=== PATIENT | male | born 1975 | race Caucasian/White ===

== ENCOUNTER → 2019-04-10 | Outpatient (REF) ==
[~2019-04-10] MED LIST: AMBI5TAB PO; PAXI20TA29 PO; Propanolol PO; ZANT150T15 PO
--- NOTE | 2019-04-10 14:40 | REP ---
Clinical: Pain. Technique: Neutral and frog lateral views of the right hip. Findings: Osseous structures, joint spaces, and surrounding soft tissues are normal for age. No overt arthritic changes are appreciated. No acute fracture dislocation. Surrounding soft tissues normal. Impression: Normal age-appropriate right hip radiographs. Electronically Signed by Skyler Amin MD 04/10/2019 02:31 P
--- NOTE | 2019-04-10 14:42 | REP ---
Clinical: Pain and disability. Technique: AP, lateral, coned-down views of the lumbosacral spine. Findings: Alignment and lordosis maintained. Chronic L5 spondylolysis without spondylolisthesis is suggested. Very minimal disc space narrowing at L4-5 and L5-S1 noted. Remainder examination is normal for age. Impression: Chronic L5 spondylolysis and minimal disc space narrowing at L4-5 and L5-S1. Electronically Signed by Skyler Amin MD 04/10/2019 02:34 P
== END ==
LOC: M SMT 14:02
PROVIDERS: ATTEND Internal Medicine
DX: Z02.71 Encounter for disability determination (principal)

== ENCOUNTER → 2020-09-23 | Outpatient (CLI) | payer MEDICARE, OTHER ==
[~2020-09-23] MED LIST changes: +D31000TA2 PO; +LISI10TA4 PO; +MECL1TAB31 PO; +OMEP40CA97 PO; +PROP40TA62 PO
== END ==
LOC: M LABSMTC 12:12
PROVIDERS: ATTEND Anesthesiology
DX: Z01.812 Encounter for preprocedural laboratory examination (principal)

== ENCOUNTER → 2021-03-11 | Outpatient (CLI) | payer OTHER ==
[~2021-03-11] MED LIST changes: +LISI10TA22 PO; -LISI10TA4 PO
--- NOTE | 2021-03-11 11:51 | REPVR ---
PROCEDURE INFORMATION: Exam: MR Lumbar Spine Without Contrast Exam date and time: 03/11/2021 10:56 AM Age: 45 years old Clinical indication: Low back pain; Patient HX: Lbp TECHNIQUE: Imaging protocol: Multiplanar magnetic resonance images of the lumbar spine without intravenous contrast. COMPARISON: SPINE LUMBOSACRAL PARTIAL 04/10/2019 2:19 PM FINDINGS: Vertebrae: No acute compression fracture is seen. There are chronic bilateral pars defects at L5. Bone marrow signal is within normal limits. Spinal cord: The conus medullaris terminates at the T12-L1 level. There is no evidence of arachnoiditis or cauda equina compression. L1-L2: No significant disc disease. No significant spinal stenosis or neural foraminal narrowing. L2-L3: There is mild facet arthropathy. No spinal canal or neural foraminal stenosis is present. L3-L4: There is mild facet arthropathy. No spinal canal or neural foraminal stenosis is present. L4-L5: There is disc dehydration, mild diffuse circumferential disc bulging, and a small central annular fissure. Mild facet arthropathy is also present. There is no significant spinal canal stenosis. There is minimal narrowing of the subarticular recesses and minimal bilateral neural foraminal narrowing. L5-S1: There is disc dehydration, moderate diffuse circumferential disc bulging, and a superimposed central and paracentral annular fissure. Mild facet arthropathy is also noted. The spinal canal is widely patent. There is minimal bilateral neural foraminal narrowing. Soft tissues: Unremarkable. IMPRESSION: 1. Chronic L5 pars defects 2. 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
== END ==
LOC: M PLARAD 09:57
PROVIDERS: ATTEND Nurse Practitioner Primary Care
DX: M51.36 Other intervertebral disc degeneration, lumbar region (principal); M54.5 Low back pain

== ENCOUNTER → 2023-03-27 | Outpatient (CLI) | payer OTHER ==
[~2023-03-27] MED LIST changes: -D31000TA2 PO; +OMEP40CA4 PO; -OMEP40CA97 PO; -PAXI20TA29 PO; +PAXI20TA30 PO; +VITA100093 PO
== END ==
LOC: M SLEEP 20:00
DX: G47.33 Obstructive sleep apnea (adult) (pediatric) (principal)

== ENCOUNTER → 2025-05-08 | Outpatient (CLI) | payer OTHER ==
[~2025-05-08] MED LIST changes: -AMBI5TAB PO; +MECL-209 PO; -MECL1TAB31 PO; +ZOLP-532 PO
== END ==
LOC: M RAD 12:59
PROVIDERS: ATTEND Nurse Practitioner Family
DX: R10.84 Generalized abdominal pain (principal); K76.0 Fatty (change of) liver, not elsewhere classified; R16.0 Hepatomegaly, not elsewhere classified